=== PATIENT | female | born 1950 | race Caucasian/White ===

== ENCOUNTER 2024-01-11 20:54 | Inpatient (IN) | payer MEDICARE ==
[2024-01-11] MEDS ORDERED: Acetaminophen 325 MG TAB PO PRN (22:44)
[2024-01-11] MEDS ORDERED: Morphine 2 MG/ML VIAL SLOW IVP PRN (22:44)
[2024-01-11 22:46] VITALS: BMI 100.0
[2024-01-12] MEDS: Lactated Ringer's 1,000 ML IV SCH ×2 (00:23→06:28)
[2024-01-12 01:08] LABS: INR-International Normal Ratio 1.4; PTT 34.3 sec (22.9-36.1); Prothrombin Time 17.4 sec (12.0-14.7)
[2024-01-12 06:08] LABS: Creatinine, Urine 127.05 mg/dL (47-110)
[2024-01-12 06:11] LABS: Hematocrit 38.1 % (36.0-47.0); Hemoglobin 12.7 g/dL (12.0-16.0); Lactic Acid 2.04 mmol/L (0.5-2.2); Mean Corpuscular HGB CONC 33.3 g/dL (32.0-36.0); Mean Corpuscular Hemoglobin 29.7 pg (27.0-31.0); Mean Corpuscular Volume 89.2 fL (78.0-98.0); Mean Platelet Volume 10.4 fL (7.4-10.4); Platelet Count 39 10x3/uL (130-400); Red Blood Cell (RBC) Count 4.27 mill/uL (4.20-5.40)
[2024-01-12 06:15] LABS: ALT (SGPT) 22 U/L (8-55); AST (SGOT) 37 U/L (5-34); Albumin 2.4 g/dL (3.4-4.8); Alkaline Phosphatase 115 U/L (40-110); Anion Gap 14 mmol/L (10-20); BUN (Urea Nitrogen) 47 mg/dL (9.8-20.1); Bilirubin, Total 0.5 mg/dL (0.2-1.2); Calc. Creatinine Clearance 34 mL/min (70-130); Calcium 7.9 mg/dL (7.8-10.44); Carbon Dioxide 17 mmol/L (23-31); Chloride 115 mmol/L (98-107); Estimated GFR 18; Glucose 85 mg/dL (83-110); Potassium 3.7 mmol/L (3.5-5.1); Protein, Total 5.4 g/dL (5.8-8.1); Sodium 142 mmol/L (136-145)
[2024-01-12 07:48] LABS: Band 20 % (5-11); Burr Cells MODERATE= 6-15 cells HPF (0-1); Lymphocytes 1 % (21-51); Monocytes 1 % (0-10); Neutrophil 79 % (42-75); Platelet Adequacy Comment Significant Decrease; Poikilocytosis SLIGHT = 6-15 cells HPF (0-5)
[2024-01-12] MEDS ORDERED: Meropenem 1 GM in Sodium Chloride 0.9% 100 ML IVPB SCH (09:30)
[2024-01-12 09:35] LABS: Bilirubin Negative (Negative); Blood, Urine Large (Negative); Glucose, Urine (Dipstick) Negative (Negative); Ketone, Urine Trace mg/dL (Negative); Leukocyte Moderate (Negative); Nitrite Negative (Negative); Protein, Urine (Dipstick) 30 mg/dL (Neg-Trace); Urobilinogen 0.2 mg/dL (Less than 2)
[2024-01-12 09:37] LABS: Clarity Clear (Clear)
[2024-01-12 09:39] LABS: Bacteria/HPF 1+ HPF (None Seen); Squamous Epithelial 0-3 HPF (0-3); WBC/HPF 21-50 HPF (0-3)
[2024-01-12 10:11] LABS: Platelet Count 39 10x3/uL (130-400)
[2024-01-12] MEDS ORDERED: Iopamidol 15 ML ONE (12:04)
[2024-01-12] MEDS ORDERED: Lidocaine 1% PF 5 ML VIAL ONE (12:52)
[2024-01-12] MEDS ORDERED: PROPOFOL 20 ML ONE (13:22)
[2024-01-12] MEDS ORDERED: fentaNYL PF 100 MCG/2 ML SYRINGE ONE (13:22)
[2024-01-12] MEDS ORDERED: Oxybutynin 5 MG TAB PO PRN (13:38)
[2024-01-12] MEDS ORDERED: Morphine 4 MG/ML VIAL ONE (14:01)
[2024-01-12] MEDS ORDERED: Labetalol HCl 100 MG/20 ML VIAL ONE (14:22)
[2024-01-12] MEDS ORDERED: hydrALAZINE 20 MG/ML VIAL ONE (14:47)
[2024-01-12] MEDS: cefTRIAXone\\ROCEPHIN 1 GM in Sodium Chloride 0.9% 100 ML IVPB SCH (17:39)
[2024-01-13 05:48] LABS: #Basophils 0.09 10x3/uL (0.0-0.2); %Basophils 0.4 % (0.0-1.0); %Eosinophils 0.5 % (0.0-10.0); %Lymphocytes 4.2 % (21.0-51.0); %Monocytes 3.1 % (0.0-10.0); %Neutrophils 91.2 % (42.0-75.0); Hematocrit 40.1 % (36.0-47.0); Hemoglobin 13.2 g/dL (12.0-16.0); Mean Corpuscular HGB CONC 32.9 g/dL (32.0-36.0); Mean Corpuscular Hemoglobin 29.7 pg (27.0-31.0); Mean Corpuscular Volume 90.3 fL (78.0-98.0); Platelet Count 45 10x3/uL (130-400); RBC Distribution Width 16.6 % (11.5-14.5); Red Blood Cell (RBC) Count 4.44 mill/uL (4.20-5.40)
[2024-01-13 06:04] LABS: ALT (SGPT) 35 U/L (8-55); AST (SGOT) 54 U/L (5-34); Albumin 2.3 g/dL (3.4-4.8); Alkaline Phosphatase 215 U/L (40-110); Anion Gap 14 mmol/L (10-20); BUN (Urea Nitrogen) 44 mg/dL (9.8-20.1); Bilirubin, Total 0.4 mg/dL (0.2-1.2); Calc. Creatinine Clearance 53 mL/min (70-130); Calcium 8.1 mg/dL (7.8-10.44); Carbon Dioxide 13 mmol/L (23-31); Chloride 117 mmol/L (98-107); Estimated GFR 31; Globulin 3.3 g/dL (2.4-3.5); Glucose 129 mg/dL (83-110); Potassium 4.7 mmol/L (3.5-5.1); Protein, Total 5.6 g/dL (5.8-8.1); Sodium 139 mmol/L (136-145)
[2024-01-13] MEDS: Lactated Ringer's 1,000 ML IV SCH (10:14)
[2024-01-13] MEDS: cefTRIAXone\\ROCEPHIN 2 GM in Sodium Chloride 0.9% 100 ML IVPB SCH (14:47)
[2024-01-13 22:03] LABS: Campy jejuni + coli by PCR Negative (Negative); STEC Shiga Toxin 1+2 Negative (Negative); Salmonella spp. by PCR Negative (Negative); Shigella spp + EIEC by PCR Negative (Negative)
[2024-01-14 04:59] LABS: ALT (SGPT) 37 U/L (8-55); AST (SGOT) 38 U/L (5-34); Albumin 2.2 g/dL (3.4-4.8); Alkaline Phosphatase 161 U/L (40-110); Anion Gap 11 mmol/L (10-20); BUN (Urea Nitrogen) 47 mg/dL (9.8-20.1); Bilirubin, Total 0.4 mg/dL (0.2-1.2); Calc. Creatinine Clearance 64 mL/min (70-130); Calcium 8.4 mg/dL (7.8-10.44); Carbon Dioxide 20 mmol/L (23-31); Chloride 115 mmol/L (98-107); Estimated GFR 39; Globulin 3.1 g/dL (2.4-3.5); Glucose 127 mg/dL (83-110); Potassium 4.2 mmol/L (3.5-5.1); Protein, Total 5.3 g/dL (5.8-8.1); Sodium 142 mmol/L (136-145)
[2024-01-14 05:07] LABS: #Basophils 0.05 10x3/uL (0.0-0.2); %Basophils 0.2 % (0.0-1.0); %Eosinophils 0.1 % (0.0-10.0); %Lymphocytes 5.6 % (21.0-51.0); %Monocytes 4.6 % (0.0-10.0); %Neutrophils 88.2 % (42.0-75.0); Hematocrit 39.6 % (36.0-47.0); Mean Corpuscular HGB CONC 32.8 g/dL (32.0-36.0); Mean Corpuscular Hemoglobin 29.3 pg (27.0-31.0); Mean Corpuscular Volume 89.4 fL (78.0-98.0); Platelet Count 50 10x3/uL (130-400); RBC Distribution Width 15.7 % (11.5-14.5); Red Blood Cell (RBC) Count 4.43 mill/uL (4.20-5.40)
[2024-01-14] MEDS: Saccharomyces boulardii 250 MG CAP PO SCH (09:16)
[2024-01-14] MEDS: FLU (Fluad Triv) TS24-25 (65UP)/MF59C/PF 45 MCG/0.5 ML Syringe IM ONE (09:20)
[2024-01-14] MEDS: Lisinopril 20 MG TAB PO SCH (12:17)
[2024-01-14] MEDS: Hydrochlorothiazide 25 MG TAB PO SCH (12:17)
[2024-01-14 14:15] LABS: Bilirubin Negative (Negative); Blood, Urine 3+ (Negative); Glucose, Urine (Dipstick) Normal (Negative); Ketone, Urine Negative (Negative); Leukocyte 250 Leu/uL (Negative); Nitrite Negative (Negative); Protein, Urine (Dipstick) 10 mg/dL (Neg-Trace); RBC/HPF Greater than 50 HPF (0-3); Specific Gravity, Urine 1.012 (1.002-1.036); Urobilinogen Normal mg/dL (Less than 2); WBC/HPF 21-50 HPF (0-3); pH, Urine 5.5 (5.0-9.0)
[2024-01-14 14:17] LABS: Transitional Epithelial 0-3 HPF (None Seen)
[2024-01-14 14:20] LABS: Clarity Slightly Cloudy (Clear)
[2024-01-14 14:21] LABS: Bacteria/HPF Rare-Few HPF (None Seen); Yeast-Budding Rare HPF (None Seen)
[2024-01-14] MEDS: LevoFLOXacin 750 MG TAB PO SCH (16:54)
[2024-01-15 04:55] LABS: #Basophils 0.05 10x3/uL (0.0-0.2); #Eosinophils Less than 0.03 10x3/uL (0.0-0.7); %Basophils 0.3 % (0.0-1.0); %Eosinophils 0.1 % (0.0-10.0); %Lymphocytes 10.5 % (21.0-51.0); %Monocytes 10.9 % (0.0-10.0); %Neutrophils 73.6 % (42.0-75.0); Hematocrit 41.4 % (36.0-47.0); Hemoglobin 13.9 g/dL (12.0-16.0); Mean Corpuscular HGB CONC 33.6 g/dL (32.0-36.0); Mean Corpuscular Hemoglobin 29.8 pg (27.0-31.0); Mean Corpuscular Volume 88.7 fL (78.0-98.0); Mean Platelet Volume 11.6 fL (7.4-10.4); Platelet Count 58 10x3/uL (130-400); RBC Distribution Width 15.6 % (11.5-14.5); Red Blood Cell (RBC) Count 4.67 mill/uL (4.20-5.40)
[2024-01-15 05:18] LABS: ALT (SGPT) 78 U/L (8-55); AST (SGOT) 78 U/L (5-34); Albumin 2.3 g/dL (3.4-4.8); Alkaline Phosphatase 155 U/L (40-110); Anion Gap 13 mmol/L (10-20); BUN (Urea Nitrogen) 45 mg/dL (9.8-20.1); Bilirubin, Total 1.4 mg/dL (0.2-1.2); Calc. Creatinine Clearance 72 mL/min (70-130); Calcium 8.7 mg/dL (7.8-10.44); Carbon Dioxide 22 mmol/L (23-31); Chloride 112 mmol/L (98-107); Estimated GFR 45; Glucose 88 mg/dL (83-110); Potassium 3.8 mmol/L (3.5-5.1); Protein, Total 5.3 g/dL (5.8-8.1); Sodium 143 mmol/L (136-145)
[2024-01-15] MEDS: Hydrochlorothiazide 25 MG TAB PO SCH (09:08)
[2024-01-15] MEDS: Lisinopril 20 MG TAB PO SCH (09:08)
[2024-01-15 11:19] VITALS: BP 157/91; TEMP 97.8
[2024-01-15] MEDS ORDERED: LevoFLOXacin 750 MG TAB PO SCH (14:00)
== END 2024-01-15 13:08 | disposition home or self-care (01) | DRG 854 ==
LOC: SURG B 21:51
PROVIDERS: ADMIT Student in an Organized Health Care Education/Training Program; ATTEND Student in an Organized Health Care Education/Training Program
PROC: 0T778DZ Dilation of Left Ureter with Intraluminal Device, Via Natural or Artificial Opening Endoscopic (ICD-10-PCS; principal; 2024-01-12)
PROC: BT1FZZZ Fluoroscopy of Left Kidney, Ureter and Bladder (ICD-10-PCS; 2024-01-12)
DX: A41.59 Other Gram-negative sepsis (principal); E87.20 Acidosis, unspecified; N13.6 Pyonephrosis; Z68.42 Body mass index [BMI] 45.0-49.9, adult; N17.9 Acute kidney failure, unspecified; E86.0 Dehydration; I10 Essential (primary) hypertension; E78.5 Hyperlipidemia, unspecified; N28.1 Cyst of kidney, acquired; J84.10 Pulmonary fibrosis, unspecified; D35.02 Benign neoplasm of left adrenal gland; K52.9 Noninfective gastroenteritis and colitis, unspecified; D69.59 Other secondary thrombocytopenia; E66.01 Morbid (severe) obesity due to excess calories; Z79.899 Other long term (current) drug therapy
CPT/HCPCS: 36415; 71045; 74420; 80053; 81001; 82570; 83605; 84300; 85025; 85060; 85610; 85730; 87040; 87077; 87086; 87186; 87324; 87328; 87329; 87449; 87505; 90653; 93005; 93010; C2617; J0360; J0696; J2272; J2704; J7120; Q9967